=== PATIENT | male | born 1970 | race African-American/Black ===

== ENCOUNTER 2022-06-07 02:44 | Inpatient (IN) | payer BC, MEDICAID ==
[~2022-06-07] VITALS: Ht 185.4 cm; Wt 99.8 kg
[2022-06-07] MEDS ORDERED: HEPARIN SODIUM (PORCINE) 5000 UNITS/ML 1ML VIAL ONE (03:00)
[2022-06-07] MEDS ORDERED: HEPARIN DRIP/D5W 100UNITS/ML 250 ML IV ONE (03:03)
[2022-06-07] MEDS ORDERED: HEPARIN DRIP/D5W 100UNITS/ML 250 ML IV SCH (03:15)
[2022-06-07] MEDS ORDERED: HEPARIN SODIUM (PORCINE) 5000 UNITS/ML 1ML VIAL IV ONE (03:15)
[2022-06-07 03:23] LABS: Hematocrit 37.8 % (41.0-53.0); Hemoglobin 13.4 g/dL (13.5-17.5); Mean Corpuscular Hemoglobin 31.3 pg (28.0-32.0); Mean Corpuscular Hgb Conc. 35.4 g/dL (32.0-36.0); Mean Corpuscular Volume 88.6 fL (80.0-100.0); Red Blood Cells 4.27 10^6/uL (4.5-5.90); Red Cell Distribution Width 13.3 % (11.8-14.3)
[2022-06-07] MEDS ORDERED: ANGIOMAX 250 MG VIAL IV ONE (03:30)
[2022-06-07] MEDS ORDERED: SODIUM CHL 0.9% 50 ML ONE (03:30)
[2022-06-07] MEDS ORDERED: fentaNYL CITRATE 100 MCG/2 ML VL ONE (03:30)
[2022-06-07] MEDS ORDERED: MIDAZOLAM HCL 2MG/2ML 2ml VIAL (1mg/ml) ONE (03:30)
[2022-06-07] MEDS ORDERED: LIDOCAINE 2%HCL (LOCAL ANESTH.) INJ 10ml MDV ONE (03:31)
[2022-06-07] MEDS ORDERED: IOHEXOL 350 MG/ML 100ML IJ ONE (03:31)
[2022-06-07 03:35] LABS: Basophils % (manual) 0 (0.0-2.0); Blast Cells 0; Metamyelocytes % 0; Myelocytes % 0; Promyelocytes % 0; Reactive Lymphocytes 0
[2022-06-07 03:42] LABS: Albumin 3.8 g/dL (3.4-5.0); Calcium 8.6 mg/dL (8.5-10.1); Potassium 3.3 mmol/L (3.5-5.1)
[2022-06-07 03:44] LABS: BUN/Creatinine Ratio 13.9
[2022-06-07 03:47] LABS: Bilirubin, Total 0.5 mg/dL (0.2-1.0); Total Protein 7.1 g/dL (6.4-8.2)
[2022-06-07 04:19] LABS: Band Neutrophils % (manual) 1; Eosinophils % (manual) 1 (0-7); Lymphocytes % (manual) 74 (10.0-50.0); Monocytes % (manual) 6 (0-12)
[2022-06-07] MEDS ORDERED: TICAGRELOR 90 MG TAB ONE (04:26)
[2022-06-07] MEDS ORDERED: DEXTROSE (50%) 50ML SYRG IV PRN (04:30)
[2022-06-07] MEDS ORDERED: NITROGLYCERIN 0.4 MG SL TAB SL PRN (06:45)
[2022-06-07] MEDS ORDERED: MORPHINE SULFATE INJ 2 MG/ml SYRG IV PRN (06:45)
[2022-06-07] MEDS: ACCU-CHEK COMFORT CURVE STRIP VI SCH ×4 (07:00→21:38)
[2022-06-07] MEDS: InsuLIN REG 1unit/0.01ml Soln (100units/ml) SC SCH ×4 (07:00→21:38)
[2022-06-07 07:04] VITALS: BP 143/78
[2022-06-07] MEDS ORDERED: ASPI-543 PO (07:19)
[2022-06-07] MEDS: ASPirin 81 mg TAB PO SCH (10:30)
[2022-06-07] MEDS: DAPAGLIFLOZIN 5 MG TAB PO SCH (10:58)
[2022-06-07] MEDS: ATORVASTATIN 20 MG TAB PO SCH (10:59)
[2022-06-07] MEDS: BENAZEPRIL HCL 10 MG TAB PO SCH ×2 (11:45→21:32)
[2022-06-07] MEDS: TICAGRELOR 90 MG TAB PO SCH ×2 (12:25→21:28)
[2022-06-07 13:30] VITALS: BP 140/77
[2022-06-07 14:44] LABS: INR 0.99 (0.9-1.15); Partial Thromboplastin Time 23.5 sec (24.6-33.4)
[2022-06-07 16:19] VITALS: BP 136/78
[2022-06-07 22:00] VITALS: BP 133/73
[2022-06-08 05:00] VITALS: BP 123/68
[2022-06-08] MEDS: InsuLIN REG 1unit/0.01ml Soln (100units/ml) SC SCH ×4 (07:02→21:32)
[2022-06-08] MEDS: ACCU-CHEK COMFORT CURVE STRIP VI SCH ×4 (07:03→21:32)
[2022-06-08 09:00] VITALS: BP 118/73
[2022-06-08] MEDS: ASPirin 81 mg TAB PO SCH (09:40)
[2022-06-08] MEDS: TICAGRELOR 90 MG TAB PO SCH ×2 (09:40→21:24)
[2022-06-08] MEDS: ATORVASTATIN 20 MG TAB PO SCH (09:41)
[2022-06-08] MEDS: DAPAGLIFLOZIN 5 MG TAB PO SCH (09:41)
[2022-06-08] MEDS: BENAZEPRIL HCL 10 MG TAB PO SCH ×2 (09:42→21:25)
[2022-06-08 13:00] VITALS: BP 118/70
[2022-06-08] MEDS ORDERED: FAMOTIDINE 20 MG TAB PO ONE (16:45)
[2022-06-08 17:00] VITALS: BP 119/69
[2022-06-08] MEDS: SOD CHL 0.9%/ KCL 40MEQ 1,000 ML IV SCH (17:13)
[2022-06-08 18:35] LABS: Cholesterol 192 mg/dL (< 200)
[2022-06-08 18:37] LABS: HDL Cholesterol 45 mg/dL (40-59); LDL Cholesterol 138 mg/dL (< 100); Triglycerides 155 mg/dL (< 150)
[2022-06-08 21:46] VITALS: BP 103/66
[2022-06-09 04:51] VITALS: BP 123/67
[2022-06-09 05:58] LABS: Basophils # (auto) 0 10 ^3/uL (0-0.2); Basophils % (auto) 0.4 % (0.0-2.0); Eosinophils # (auto) 0.1 10 ^3/uL (0-0.8); Eosinophils % (auto) 1.1 % (0.0-7.0); Hematocrit 37.4 % (41.0-53.0); Lymphocytes # (auto) 3.7 10 ^3/uL (0.4-5.4); Lymphocytes % (auto) 50.4 % (10.0-50.0); Mean Corpuscular Hemoglobin 30.6 pg (28.0-32.0); Mean Corpuscular Hgb Conc. 34.8 g/dL (32.0-36.0); Mean Corpuscular Volume 88.1 fL (80.0-100.0); Monocytes # (auto) 0.6 10 ^3/uL (0-1.3); Neutrophils % (auto) 40.1 % (37.0-80.0); Red Blood Cells 4.25 10^6/uL (4.5-5.90); Red Cell Distribution Width 13.1 % (11.8-14.3); White Blood Cell 7.4 10^3/uL (4.4-10.8)
[2022-06-09] MEDS: SOD CHL 0.9%/ KCL 40MEQ 1,000 ML IV SCH (06:05)
[2022-06-09 06:17] LABS: Albumin 3.6 g/dL (3.4-5.0); Calcium 8.9 mg/dL (8.5-10.1); Potassium 4.7 mmol/L (3.5-5.1)
[2022-06-09 06:20] LABS: BUN/Creatinine Ratio 17.5
[2022-06-09 06:22] LABS: Bilirubin, Total 0.4 mg/dL (0.2-1.0); Total Protein 6.7 g/dL (6.4-8.2)
[2022-06-09] MEDS: InsuLIN REG 1unit/0.01ml Soln (100units/ml) SC SCH (06:26)
[2022-06-09] MEDS: ACCU-CHEK COMFORT CURVE STRIP VI SCH (06:28)
[2022-06-09 09:00] VITALS: BP 140/79
[2022-06-09] MEDS: ASPirin 81 mg TAB PO SCH (09:57)
[2022-06-09] MEDS: DAPAGLIFLOZIN 5 MG TAB PO SCH (09:58)
[2022-06-09] MEDS: TICAGRELOR 90 MG TAB PO SCH (09:58)
[2022-06-09] MEDS: ATORVASTATIN 20 MG TAB PO SCH (09:58)
[2022-06-09] MEDS: BENAZEPRIL HCL 10 MG TAB PO SCH (09:58)
[2022-06-09] MEDS ORDERED: FAMOTIDINE 20 MG TAB PO SCH (10:00)
[2022-06-09] MEDS ORDERED: ASPI-325 PO (10:01)
[2022-06-09] MEDS ORDERED: TICA90TA PO (10:01)
[2022-06-09] MEDS ORDERED: BENA10TA15 PO (10:01)
[2022-06-09] MEDS ORDERED: ATOR20TA50 PO (10:01)
[2022-06-09] MEDS ORDERED: NITR0.4S29 SL (10:01)
[2022-06-09] MEDS ORDERED: DAPA1TAB4 PO (10:02)
[2022-06-09 10:11] VITALS: BP 140/79
== END 2022-06-09 10:26 | disposition home or self-care (01) | DRG 247 ==
LOC: EDBD 02:44 → ER 02:44 → TELE 06:44 → TELE-EAST 08:21
PROVIDERS: ADMIT Internal Medicine Cardiovascular Disease; ATTEND Internal Medicine
PROC: 027036Z Dilation of Coronary Artery, One Artery with Three Drug-eluting Intraluminal Devices, Percutaneous Approach (ICD-10-PCS; principal; 2022-06-07)
PROC: B2111ZZ Fluoroscopy of Multiple Coronary Arteries using Low Osmolar Contrast (ICD-10-PCS; 2022-06-07)
DX: I21.19 ST elevation (STEMI) myocardial infarction involving other coronary artery of inferior wall (principal); E78.5 Hyperlipidemia, unspecified; E11.22 Type 2 diabetes mellitus with diabetic chronic kidney disease; I25.10 Atherosclerotic heart disease of native coronary artery without angina pectoris; J44.9 Chronic obstructive pulmonary disease, unspecified; E11.40 Type 2 diabetes mellitus with diabetic neuropathy, unspecified; E87.6 Hypokalemia; R00.1 Bradycardia, unspecified; E11.65 Type 2 diabetes mellitus with hyperglycemia; I12.9 Hypertensive chronic kidney disease with stage 1 through stage 4 chronic kidney disease, or unspecified chronic kidney disease; N18.2 Chronic kidney disease, stage 2 (mild); Z82.49 Family history of ischemic heart disease and other diseases of the circulatory system; Z86.73 Personal history of transient ischemic attack (TIA), and cerebral infarction without residual deficits; Z95.5 Presence of coronary angioplasty implant and graft; Z20.822 Contact with and (suspected) exposure to COVID-19
CPT/HCPCS: 36415; 71045; 80053; 80061; 82962; 84484; 85007; 85025; 85027; 85610; 85730; 93005; 96365; 99152; 99153; 99291; C1874; C1887; G0378; J1815; J2001; J2250

== ENCOUNTER 2022-08-28 20:13 | Inpatient (IN) | payer BC, MEDICAID ==
[~2022-08-28] VITALS: Ht 185.4 cm; Wt 97.1 kg
[~2022-08-28 20:13] MED LIST: ASPI-325 PO; ASPI-543 PO; ATOR20TA50 PO; BENA10TA15 PO; DAPA1TAB4 PO; NITR0.4S29 SL; TICA90TA PO
[2022-08-28 22:58] LABS: Hematocrit 36.1 % (41.0-53.0); Hemoglobin 12.6 g/dL (13.5-17.5); Mean Corpuscular Hemoglobin 30.5 pg (28.0-32.0); Mean Corpuscular Hgb Conc. 34.8 g/dL (32.0-36.0); Mean Corpuscular Volume 87.6 fL (80.0-100.0); Red Blood Cells 4.12 10^6/uL (4.5-5.90); Red Cell Distribution Width 13.1 % (11.8-14.3)
[2022-08-28 23:00] LABS: Basophils % (manual) 0 (0.0-2.0); Blast Cells 0; Eosinophils % (manual) 0 (0-7); Metamyelocytes % 0; Myelocytes % 0; Promyelocytes % 0
[2022-08-28 23:18] LABS: Albumin 3.9 g/dL (3.4-5.0); Calcium 8.7 mg/dL (8.5-10.1); Magnesium 2.1 mg/dL (1.6-2.6); Potassium 4.4 mmol/L (3.5-5.1)
[2022-08-28 23:19] LABS: BUN/Creatinine Ratio 13.9
[2022-08-28 23:22] LABS: Bilirubin, Total 0.2 mg/dL (0.2-1.0)
[2022-08-29 00:36] LABS: Band Neutrophils % (manual) 1; Lymphocytes % (manual) 55 (10.0-50.0); Monocytes % (manual) 8 (0-12); Reactive Lymphocytes 1
[2022-08-29 05:17] LABS: Urine WBC None Seen /hpf (0 - 3)
[2022-08-29 05:25] LABS: Urine Bacteria NONE SEEN /hpf (None Seen); Urine Blood Negative /uL (Negative); Urine Specific Gravity 1.027 (1.001-1.035)
[2022-08-29] MEDS ORDERED: TEMAZEPAM 15 MG CAP PO PRN (05:45)
[2022-08-29] MEDS ORDERED: hydrALAZINE HCL 20 MG/ML VL IV PRN (05:45)
[2022-08-29] MEDS ORDERED: DEXTROSE (50%) 50ML SYRG IV PRN (05:45)
[2022-08-29] MEDS ORDERED: ONDANSETRON HCL 4 MG/2 ML VIAL IV PRN (05:45)
[2022-08-29] MEDS ORDERED: MORPHINE SULFATE INJ 2 MG/ml SYRG IV PRN (05:45)
[2022-08-29] MEDS ORDERED: NITROGLYCERIN 0.4 MG SL TAB SL PRN (05:45)
[2022-08-29] MEDS: InsuLIN REG 1unit/0.01ml Soln (100units/ml) SC SCH ×4 (08:19→22:36)
[2022-08-29] MEDS: ACCU-CHEK COMFORT CURVE STRIP VI SCH ×4 (08:25→22:30)
[2022-08-29] MEDS ORDERED: TICAGRELOR 90 MG TAB PO SCH ×2 (10:00→11:45)
[2022-08-29] MEDS: ASPirin 81 mg TAB PO SCH ×2 (10:08→10:21)
[2022-08-29] MEDS: TICAGRELOR 90 MG TAB PO SCH ×2 (10:08→10:22)
[2022-08-29] MEDS: ENOXAPARIN SOD 40 MG/0.4 ML SYRINGE SC SCH (10:09)
[2022-08-29] MEDS: PANTOPRAZOLE 40 MG TAB PO SCH ×2 (10:09→10:20)
[2022-08-29] MEDS: BENAZEPRIL HCL 10 MG TAB PO SCH ×2 (10:12→10:21)
[2022-08-29] MEDS ORDERED: NITROGLYCERIN 0.4MG/HR TOPICAL PATCH TD ONE (11:45)
[2022-08-29] MEDS: SODIUM CHLORIDE 0.9% 1,000 ML IV SCH (12:03)
[2022-08-29 22:25] VITALS: BP 125/60
[2022-08-29] MEDS: ATORVASTATIN 20 MG TAB PO SCH (22:32)
[2022-08-29] MEDS: ACETAMINOPHEN 325 MG TAB PO PRN (22:44)
[2022-08-30] MEDS: SODIUM CHLORIDE 0.9% 1,000 ML IV SCH (04:25)
[2022-08-30 04:43] VITALS: BP 134/73
[2022-08-30 05:22] LABS: Basophils # (auto) 0 10 ^3/uL (0-0.2); Basophils % (auto) 0.5 % (0.0-2.0); Eosinophils # (auto) 0.1 10 ^3/uL (0-0.8); Eosinophils % (auto) 1.5 % (0.0-7.0); Hematocrit 34.2 % (41.0-53.0); Hemoglobin 12.1 g/dL (13.5-17.5); Lymphocytes # (auto) 2.6 10 ^3/uL (0.4-5.4); Lymphocytes % (auto) 42.2 % (10.0-50.0); Mean Corpuscular Hemoglobin 30.9 pg (28.0-32.0); Mean Corpuscular Hgb Conc. 35.2 g/dL (32.0-36.0); Mean Corpuscular Volume 87.6 fL (80.0-100.0); Monocytes # (auto) 0.5 10 ^3/uL (0-1.3); Monocytes % (auto) 7.8 % (0.0-12.0); Nucleated Red Blood Cells % 0.1 %; Red Blood Cells 3.91 10^6/uL (4.5-5.90); White Blood Cell 6.2 10^3/uL (4.4-10.8)
[2022-08-30 05:40] LABS: Albumin 3.2 g/dL (3.4-5.0); Calcium 8.2 mg/dL (8.5-10.1)
[2022-08-30 05:45] LABS: BUN/Creatinine Ratio 11.8; Bilirubin, Total 0.4 mg/dL (0.2-1.0); Total Protein 5.9 g/dL (6.4-8.2)
[2022-08-30] MEDS: ACCU-CHEK COMFORT CURVE STRIP VI SCH ×4 (06:32→22:02)
[2022-08-30] MEDS: InsuLIN REG 1unit/0.01ml Soln (100units/ml) SC SCH ×4 (06:38→22:02)
[2022-08-30 08:54] VITALS: BP 135/84
[2022-08-30] MEDS: ENOXAPARIN SOD 40 MG/0.4 ML SYRINGE SC SCH (09:07)
[2022-08-30] MEDS: TICAGRELOR 90 MG TAB PO SCH ×2 (09:07→22:00)
[2022-08-30] MEDS: BENAZEPRIL HCL 10 MG TAB PO SCH ×2 (09:08→22:01)
[2022-08-30] MEDS: ASPirin 81 mg TAB PO SCH (09:08)
[2022-08-30] MEDS ORDERED: DEXTROSE (50%) 50ML SYRG IV PRN (11:30)
[2022-08-30] MEDS: NITROGLYCERIN 0.4MG/HR TOPICAL PATCH TD SCH (11:30)
[2022-08-30] MEDS: ACETAMINOPHEN 325 MG TAB PO PRN (12:14)
[2022-08-30 13:16] VITALS: BP 124/76
[2022-08-30 17:47] VITALS: BP 149/66
[2022-08-30] MEDS: ATORVASTATIN 20 MG TAB PO SCH (22:01)
[2022-08-31] VITALS (7 sets, daily range): BP systolic 121–149; BP diastolic 70–87
[2022-08-31 06:02] LABS: Basophils # (auto) 0 10 ^3/uL (0-0.2); Basophils % (auto) 0.6 % (0.0-2.0); Eosinophils # (auto) 0.1 10 ^3/uL (0-0.8); Eosinophils % (auto) 1.1 % (0.0-7.0); Hematocrit 34.9 % (41.0-53.0); Hemoglobin 12.3 g/dL (13.5-17.5); Lymphocytes # (auto) 2.7 10 ^3/uL (0.4-5.4); Lymphocytes % (auto) 41.3 % (10.0-50.0); Mean Corpuscular Hemoglobin 30.8 pg (28.0-32.0); Mean Corpuscular Hgb Conc. 35.2 g/dL (32.0-36.0); Mean Corpuscular Volume 87.5 fL (80.0-100.0); Monocytes # (auto) 0.6 10 ^3/uL (0-1.3); Monocytes % (auto) 8.6 % (0.0-12.0); Neutrophils # (auto) 3.2 10 ^3/uL (1.6-8.6); Neutrophils % (auto) 48.4 % (37.0-80.0); Nucleated Red Blood Cells % 0.1 %; Red Blood Cells 3.99 10^6/uL (4.5-5.90); Red Cell Distribution Width 12.9 % (11.8-14.3); White Blood Cell 6.6 10^3/uL (4.4-10.8)
[2022-08-31 06:14] LABS: INR 1.03 (0.9-1.15); Partial Thromboplastin Time 26.3 sec (24.6-33.4)
[2022-08-31 06:19] LABS: Calcium 8.4 mg/dL (8.5-10.1); Potassium 3.8 mmol/L (3.5-5.1)
[2022-08-31 06:21] LABS: BUN/Creatinine Ratio 16.8
[2022-08-31] MEDS: ACCU-CHEK COMFORT CURVE STRIP VI SCH ×4 (06:34→22:23)
[2022-08-31] MEDS: InsuLIN REG 1unit/0.01ml Soln (100units/ml) SC SCH ×4 (06:40→22:35)
[2022-08-31] MEDS: ENOXAPARIN SOD 40 MG/0.4 ML SYRINGE SC SCH (10:00)
[2022-08-31] MEDS: TICAGRELOR 90 MG TAB PO SCH ×2 (10:05→22:20)
[2022-08-31] MEDS: ASPirin 81 mg TAB PO SCH (10:05)
[2022-08-31] MEDS: PANTOPRAZOLE 40 MG TAB PO SCH (10:07)
[2022-08-31] MEDS: BENAZEPRIL HCL 10 MG TAB PO SCH ×2 (10:10→22:22)
[2022-08-31] MEDS: NITROGLYCERIN 0.4MG/HR TOPICAL PATCH TD SCH (10:13)
[2022-08-31] MEDS ORDERED: IOHEXOL 350 MG/ML 100ML IJ ONE (14:04)
[2022-08-31] MEDS ORDERED: LIDOCAINE 2%HCL (LOCAL ANESTH.) INJ 20ML MDV ONE (14:04)
[2022-08-31] MEDS ORDERED: ANGIOMAX 250 MG VIAL IV ONE (14:05)
[2022-08-31] MEDS ORDERED: SODIUM CHL 0.9% 50 ML ONE (14:06)
[2022-08-31] MEDS ORDERED: MIDAZOLAM HCL 2MG/2ML 2ml VIAL (1mg/ml) ONE (14:06)
[2022-08-31] MEDS ORDERED: fentaNYL CITRATE 100 MCG/2 ML VL ONE (14:07)
[2022-08-31] MEDS: ACETAMINOPHEN 325 MG TAB PO PRN ×2 (20:04→22:36)
[2022-08-31] MEDS: SODIUM CHLOR 0.9% PF (SALINE LOCK) 10ML VIAL/SYR IV SCH (22:20)
[2022-08-31] MEDS: ATORVASTATIN 20 MG TAB PO SCH (22:20)
[2022-09-01 05:00] VITALS: BP 131/80
[2022-09-01 05:36] LABS: Albumin 3.3 g/dL (3.4-5.0); Calcium 8.3 mg/dL (8.5-10.1); Potassium 3.7 mmol/L (3.5-5.1)
[2022-09-01] MEDS: SODIUM CHLOR 0.9% PF (SALINE LOCK) 10ML VIAL/SYR IV SCH ×3 (05:38→21:47)
[2022-09-01 05:40] LABS: BUN/Creatinine Ratio 13.6; Bilirubin, Total 0.4 mg/dL (0.2-1.0); Total Protein 6.3 g/dL (6.4-8.2)
[2022-09-01] MEDS: ACCU-CHEK COMFORT CURVE STRIP VI SCH ×4 (06:12→21:53)
[2022-09-01] MEDS: InsuLIN REG 1unit/0.01ml Soln (100units/ml) SC SCH ×4 (06:41→21:53)
[2022-09-01 07:30] VITALS: BP 128/70
[2022-09-01 08:00] VITALS: BP 131/78
[2022-09-01] MEDS: ENOXAPARIN SOD 40 MG/0.4 ML SYRINGE SC SCH (08:38)
[2022-09-01] MEDS: NITROGLYCERIN 0.4MG/HR TOPICAL PATCH TD SCH (08:38)
[2022-09-01] MEDS: BENAZEPRIL HCL 10 MG TAB PO SCH ×2 (08:39→21:47)
[2022-09-01] MEDS: PANTOPRAZOLE 40 MG TAB PO SCH (08:39)
[2022-09-01] MEDS: ASPirin 81 mg TAB PO SCH (08:39)
[2022-09-01] MEDS: TICAGRELOR 90 MG TAB PO SCH ×2 (08:42→21:47)
[2022-09-01 12:00] VITALS: BP 132/74
[2022-09-01 16:00] VITALS: BP 120/73
[2022-09-01] MEDS: ATORVASTATIN 20 MG TAB PO SCH (21:47)
[2022-09-01 22:00] VITALS: BP 130/80
[2022-09-02 05:00] VITALS: BP 130/76
[2022-09-02] MEDS: ACCU-CHEK COMFORT CURVE STRIP VI SCH ×2 (06:28→11:30)
[2022-09-02] MEDS: SODIUM CHLOR 0.9% PF (SALINE LOCK) 10ML VIAL/SYR IV SCH (06:28)
[2022-09-02] MEDS: InsuLIN REG 1unit/0.01ml Soln (100units/ml) SC SCH ×2 (06:31→11:30)
[2022-09-02 09:00] VITALS: BP 110/62
[2022-09-02] MEDS: ASPirin 81 mg TAB PO SCH (09:27)
[2022-09-02] MEDS: PANTOPRAZOLE 40 MG TAB PO SCH (09:27)
[2022-09-02] MEDS: BENAZEPRIL HCL 10 MG TAB PO SCH (09:28)
[2022-09-02] MEDS: TICAGRELOR 90 MG TAB PO SCH (09:28)
[2022-09-02] MEDS: NITROGLYCERIN 0.4MG/HR TOPICAL PATCH TD SCH (09:30)
[2022-09-02] MEDS: ENOXAPARIN SOD 40 MG/0.4 ML SYRINGE SC SCH (09:31)
[2022-09-02 12:14] VITALS: BP 132/82
[2022-09-02 13:00] VITALS: BP 135/81
== END 2022-09-02 13:35 | disposition home or self-care (01) | DRG 247 ==
LOC: ER 20:13 → TELE 08-29 05:47 → TELE-WESTW 08-29 21:35
PROVIDERS: ADMIT Nurse Practitioner; ATTEND Nurse Practitioner Acute Care
PROC: 027034Z Dilation of Coronary Artery, One Artery with Drug-eluting Intraluminal Device, Percutaneous Approach (ICD-10-PCS; principal; 2022-08-31)
PROC: B211YZZ Fluoroscopy of Multiple Coronary Arteries using Other Contrast (ICD-10-PCS; 2022-08-31)
DX: I25.110 Atherosclerotic heart disease of native coronary artery with unstable angina pectoris (principal); N18.31 Chronic kidney disease, stage 3a; R00.1 Bradycardia, unspecified; E11.22 Type 2 diabetes mellitus with diabetic chronic kidney disease; E78.5 Hyperlipidemia, unspecified; E11.21 Type 2 diabetes mellitus with diabetic nephropathy; J44.9 Chronic obstructive pulmonary disease, unspecified; I12.9 Hypertensive chronic kidney disease with stage 1 through stage 4 chronic kidney disease, or unspecified chronic kidney disease; Z20.822 Contact with and (suspected) exposure to COVID-19; Z83.3 Family history of diabetes mellitus; Z86.73 Personal history of transient ischemic attack (TIA), and cerebral infarction without residual deficits; Z91.14 Patient's other noncompliance with medication regimen; Z98.61 Coronary angioplasty status; I25.2 Old myocardial infarction; Z79.82 Long term (current) use of aspirin
CPT/HCPCS: 36415; 71045; 80048; 80053; 81001; 82962; 83036; 83735; 84484; 85007; 85025; 85027; 85610; 85730; 86850; 86900; 86901; 87426; 93005; 93306; G0378; J1815; J2250

== ENCOUNTER 2022-09-15 09:44 | Emergency (ER) | payer BC, MEDICAID ==
[~2022-09-15] VITALS: Ht 185.4 cm; Wt 90.9 kg
[2022-09-15 10:12] VITALS: BP 168/64
[2022-09-15] MEDS ORDERED: PROM1SOL4 PO (10:47)
[2022-09-15] MEDS ORDERED: AZIT500T66 PO (10:47)
== END 2022-09-15 10:54 | disposition home or self-care (01) ==
LOC: ER 09:44
DX: J20.9 Acute bronchitis, unspecified (principal); I12.9 Hypertensive chronic kidney disease with stage 1 through stage 4 chronic kidney disease, or unspecified chronic kidney disease; N18.9 Chronic kidney disease, unspecified; I25.2 Old myocardial infarction; Z86.73 Personal history of transient ischemic attack (TIA), and cerebral infarction without residual deficits; Z98.61 Coronary angioplasty status
CPT/HCPCS: 71046; 93005

== ENCOUNTER 2022-11-11 11:29 | Emergency (ER) | payer BC, MEDICAID ==
[~2022-11-11] VITALS: Ht 188 cm; Wt 92.6 kg
[~2022-11-11 11:29] MED LIST changes: +AZIT500T66 PO; +PROM1SOL4 PO
[2022-11-11] MEDS ORDERED: IOHEXOL 350 MG/ML 100ML IJ ONE ×2 (12:06→12:24)
[2022-11-11 12:11] LABS: Hematocrit 37.8 % (41.0-53.0); Hemoglobin 13.1 g/dL (13.5-17.5); Mean Corpuscular Hgb Conc. 34.5 g/dL (32.0-36.0); Mean Corpuscular Volume 89.7 fL (80.0-100.0); Red Blood Cells 4.22 10^6/uL (4.5-5.90); Red Cell Distribution Width 13.3 % (11.8-14.3); White Blood Cell 5.8 10^3/uL (4.4-10.8)
[2022-11-11 12:15] LABS: Band Neutrophils % (manual) 0; Basophils % (manual) 0 (0.0-2.0); Blast Cells 0; Metamyelocytes % 0; Myelocytes % 0; Promyelocytes % 0; Reactive Lymphocytes 0
[2022-11-11 12:24] LABS: Partial Thromboplastin Time 24.5 sec (24.6-33.4)
[2022-11-11 12:29] LABS: Albumin 4.1 g/dL (3.4-5.0); Calcium 9.1 mg/dL (8.5-10.1); Magnesium 2.1 mg/dL (1.6-2.6); Potassium 4.1 mmol/L (3.5-5.1)
[2022-11-11 12:33] LABS: BUN/Creatinine Ratio 17.3; Bilirubin, Total 0.4 mg/dL (0.2-1.0); Total Protein 7.1 g/dL (6.4-8.2)
[2022-11-11 12:44] LABS: Eosinophils % (manual) 1 (0-7); Lymphocytes % (manual) 59 (10.0-50.0); Monocytes % (manual) 4 (0-12)
[2022-11-11 16:01] VITALS: BP 157/88
== END 2022-11-11 15:59 | disposition home or self-care (01) ==
LOC: ER 11:33
DX: G45.9 Transient cerebral ischemic attack, unspecified (principal); R07.89 Other chest pain; E11.65 Type 2 diabetes mellitus with hyperglycemia; I25.2 Old myocardial infarction; I25.10 Atherosclerotic heart disease of native coronary artery without angina pectoris; I12.9 Hypertensive chronic kidney disease with stage 1 through stage 4 chronic kidney disease, or unspecified chronic kidney disease; E11.22 Type 2 diabetes mellitus with diabetic chronic kidney disease; N18.9 Chronic kidney disease, unspecified; E78.5 Hyperlipidemia, unspecified; Z86.73 Personal history of transient ischemic attack (TIA), and cerebral infarction without residual deficits
CPT/HCPCS: 36415; 70450; 71045; 80053; 83735; 83880; 84484; 85007; 85027; 85610; 85730; 93005; 99285; Q9967

== ENCOUNTER 2022-12-14 09:29 | Emergency (ER) | payer BC, MEDICAID ==
[~2022-12-14] VITALS: Ht 185.4 cm; Wt 90.9 kg
[2022-12-14 10:59] LABS: Basophils # (auto) 0 10 ^3/uL (0-0.2); Basophils % (auto) 0.6 % (0.0-2.0); Eosinophils # (auto) 0 10 ^3/uL (0-0.8); Eosinophils % (auto) 0.1 % (0.0-7.0); Hematocrit 39.8 % (41.0-53.0); Hemoglobin 13.5 g/dL (13.5-17.5); Lymphocytes # (auto) 1.2 10 ^3/uL (0.4-5.4); Lymphocytes % (auto) 17.6 % (10.0-50.0); Mean Corpuscular Hemoglobin 30.4 pg (28.0-32.0); Mean Corpuscular Volume 89.4 fL (80.0-100.0); Monocytes # (auto) 0.2 10 ^3/uL (0-1.3); Monocytes % (auto) 3.3 % (0.0-12.0); Neutrophils # (auto) 5.4 10 ^3/uL (1.6-8.6); Neutrophils % (auto) 78.4 % (37.0-80.0); Nucleated Red Blood Cells % 0.1 %; Red Blood Cells 4.46 10^6/uL (4.5-5.90); Red Cell Distribution Width 13.2 % (11.8-14.3); White Blood Cell 6.8 10^3/uL (4.4-10.8)
[2022-12-14 11:11] LABS: Albumin 4.1 g/dL (3.4-5.0); BUN/Creatinine Ratio 14.2; Calcium 9.8 mg/dL (8.5-10.1); Potassium 4.3 mmol/L (3.5-5.1)
[2022-12-14 11:15] LABS: Bilirubin, Total 0.4 mg/dL (0.2-1.0); Total Protein 7.9 g/dL (6.4-8.2)
[2022-12-14] MEDS ORDERED: MAALOX PLUS or MAALOX 30 ML PO ONE (13:00)
[2022-12-14] MEDS ORDERED: FAMOTIDINE 20 MG TAB PO ONE (13:00)
[2022-12-14] MEDS ORDERED: LIDOCAINE VISCOUS 2% 15ML UD PO ONE (13:00)
[2022-12-14] MEDS ORDERED: ONDANSETRON ODT 4 MG TAB PO ONE (13:00)
[2022-12-14] MEDS ORDERED: ONDA-144 PO (15:24)
[2022-12-14 16:41] VITALS: BP 161/84
== END 2022-12-14 16:47 | disposition home or self-care (01) ==
LOC: ER 09:29
DX: R11.2 Nausea with vomiting, unspecified (principal); E11.22 Type 2 diabetes mellitus with diabetic chronic kidney disease; I12.9 Hypertensive chronic kidney disease with stage 1 through stage 4 chronic kidney disease, or unspecified chronic kidney disease; N18.9 Chronic kidney disease, unspecified; E78.5 Hyperlipidemia, unspecified; Z86.73 Personal history of transient ischemic attack (TIA), and cerebral infarction without residual deficits
CPT/HCPCS: 36415; 71045; 80053; 83690; 85025; 93005; 99285; Q0162

== ENCOUNTER 2023-10-06 11:15 | Emergency (ER) | payer MEDICAID ==
[~2023-10-06] VITALS: Ht 185.4 cm; Wt 90.8 kg
[~2023-10-06 11:15] MED LIST changes: +BENA-19 PO; -BENA10TA15 PO; +ONDA-144 PO
[2023-10-06 11:25] VITALS: BP 152/66; RESP 18; O2SAT 99
[2023-10-06 11:42] VITALS: PULSE 53
== END 2023-10-06 15:32 | disposition left against medical advice (07) ==
LOC: ER 11:15
DX: M79.10 Myalgia, unspecified site (principal); R07.89 Other chest pain; Z53.21 Procedure and treatment not carried out due to patient leaving prior to being seen by health care provider
CPT/HCPCS: 82962; 93005

== ENCOUNTER 2024-07-12 18:24 | Emergency (ER) | payer BC, MEDICAID ==
[~2024-07-12] VITALS: Ht 185.4 cm; Wt 92.0 kg
[~2024-07-12 18:24] MED LIST changes: -BENA-19 PO; +BENA10TA90 PO
[2024-07-12 18:25] VITALS: BP 160/76; RESP 16; O2SAT 99
[2024-07-12 18:53] LABS: Basophils # (auto) 0 10 ^3/uL (0-0.2); Basophils % (auto) 0.7 % (0.0-2.0); Eosinophils # (auto) 0.1 10 ^3/uL (0-0.8); Eosinophils % (auto) 1.2 % (0.0-7.0); Hematocrit 36.4 % (41.0-53.0); Hemoglobin 12.6 g/dL (13.5-17.5); Lymphocytes # (auto) 3.3 10 ^3/uL (0.4-5.4); Lymphocytes % (auto) 53.2 % (10.0-50.0); Mean Corpuscular Hemoglobin 31.5 pg (28.0-32.0); Mean Corpuscular Hgb Conc. 34.7 g/dL (32.0-36.0); Mean Corpuscular Volume 90.7 fL (80.0-100.0); Monocytes # (auto) 0.4 10 ^3/uL (0-1.3); Monocytes % (auto) 6.1 % (0.0-12.0); Neutrophils # (auto) 2.4 10 ^3/uL (1.6-8.6); Neutrophils % (auto) 38.8 % (37.0-80.0); Platelet Count (auto) 220 10^3/uL (140-450); Red Blood Cells 4.02 10^6/uL (4.5-5.90); Red Cell Distribution Width 13.8 % (11.8-14.3); White Blood Cell 6.3 10^3/uL (4.4-10.8)
[2024-07-12 19:19] LABS: Alanine Aminotransferase 23 U/L (7-40); Albumin 4.6 g/dL (3.2-4.8); Alkaline Phosphatase 63 U/L (46-116); Anion Gap 6 (5-15); Aspartate Aminotransferase 16 U/L (13-40); BUN/Creatinine Ratio 7.6 (10.0-20.0); Blood Urea Nitrogen 11 mg/dL (9-23); Calcium 9.6 mg/dL (8.7-10.4); Carbon Dioxide 27 mmol/L (20-30); Chloride 103 mmol/L (98-107); Glucose 356 mg/dL (74-106); Potassium 4.1 mmol/L (3.5-5.1); Sodium 136 mmol/L (136-145)
[2024-07-12 19:20] LABS: Bilirubin, Total 0.3 mg/dL (0.2-1.0); Total Protein 7.5 g/dL (5.7-8.2)
[2024-07-12 19:31] VITALS: PULSE 55
[2024-07-12 20:04] LABS: INR 1.05 (0.9-1.15); Partial Thromboplastin Time 26.5 SEC (24.5-34.5); Prothrombin Time 11.1 sec (9.3-11.8)
[2024-07-13] MEDS: ASPirin 81 mg TAB PO ONE (01:38)
[2024-07-13] MEDS: MORPHINE SULFATE 4 MG/ML SYR/VIAL IV ONE (01:38)
[2024-07-13] MEDS: NITROGLYCERIN 0.4 MG SL TAB SL ONE (01:38)
== END 2024-07-13 01:28 | disposition home or self-care (01) ==
LOC: ER 18:24
DX: R07.89 Other chest pain (principal); I12.9 Hypertensive chronic kidney disease with stage 1 through stage 4 chronic kidney disease, or unspecified chronic kidney disease; E11.22 Type 2 diabetes mellitus with diabetic chronic kidney disease; N18.9 Chronic kidney disease, unspecified; I25.2 Old myocardial infarction; I25.10 Atherosclerotic heart disease of native coronary artery without angina pectoris; E78.5 Hyperlipidemia, unspecified; Z98.890 Other specified postprocedural states; Z79.899 Other long term (current) drug therapy
CPT/HCPCS: 36415; 71045; 80053; 84484; 85025; 85610; 85730; 93005

== ENCOUNTER 2025-09-14 15:58 | Emergency (ER) | payer BC, OTHER ==
[~2025-09-14] VITALS: Ht 182.9 cm; Wt 89.0 kg
--- NOTE | 2025-09-14 16:46 | ED.PDOC ---
Eye-HPI HPI Comments 55 year old male with PMHx CAD, CKF, CVA, DM, HLD, HTN, [place] presents to the ED with a chief complaint of RT ear pain onset today (09/14/25). Patient states he woke up this morning experiencing RT ear pain, described as an aching pain, began experiencing headache. Has not taken any medication. No other symptoms or modifying factors present at this time. Denies blunt trauma (hand blow to the ear, fall, direct hit) Denies penetrating trauma (Q-tip use, match-stick, gunshot wound, welding spark) Denies ear trauma Denies barotrauma Denies blast injury Denies air travel Denies scuba diving Denies hearing loss Denies persistent ringing in the ear Denies fever chills night sweats unintentional weight loss Denies nausea vomiting or recent vision changes Chief Complaint: Earache Time Seen by MD: 16:30 Primary Care Provider: NONE Reviewed Notes: Nurses Notes, Medications, Allergies Allergies: Coded Allergies: NO KNOWN ALLERGIES (Unverified , 06/07/22) Home Meds Active Scripts Ondansetron (Zofran) 4 Mg Tab, 4 MG PO Q8HPRN PRN for 3 Days, #9 TAB Prov:TRUDY VEGA MD 12/14/22 Promethazine-Dm (Promethazine Dm 6.25-15 mg/5Ml) 1 [place], 5 ML PO TID, #160 ML Prov:MELISSA ECHEVERRIA 09/15/22 Azithromycin (Azithromycin) 500 Mg Tab, 1 TAB PO DAILY, #5 TAB Prov:MELISSA ECHEVERRIA 09/15/22 Dapagliflozin Propanediol (Farxiga) 10 Mg Tab, 10 MG PO DAILY for 30 Days, #30 TAB Prov:OSWALD SANTIAGO MD 06/09/22 Ticagrelor Base (BRILINTA) 90 Mg Tab, 90 MG PO BID for 30 Days, #60 TAB Prov:OSWALD SANTIAGO MD 06/09/22 Nitroglycerin (NTROSTAT SUBLINGUAL) 0.4 Mg Sl, 0.4 MG SL Q5MINP PRN for 30 Days, #30 TAB Prov:OSWALD SANTIAGO MD 06/09/22 Benazepril Hcl (Benazepril Hcl) 10 Mg Tab, 10 MG PO BID for 30 Days, #60 TAB Prov:OSWALD SANTIAGO MD 06/09/22 Atorvastatin Calcium (ATORVASTATIN CALCIUM) 20 Mg Tab, 20 MG PO DAILY for 30 Days, #30 TAB Prov:OSWALD SANTIAGO MD 06/09/22 Aspirin (Aspirin Low Dose) 81 Mg Tab, 81 MG PO DAILY for 30 Days, #30 TAB 1 Refill Prov:OSWALD SANTIAGO MD 06/09/22 Reported Medications Aspirin (Aspir-Low) 81 Mg Tab, 81 MG PO DAILY for 30 Days, MG 06/07/22 Information Source: Patient Mode of Arrival: Ambulatory Timing: Hours Duration: Since onset Prehospital treatment: None Quality: Pain Onset: Spontaneous Throat Exposed to: None History of: None Last Tetanus: UTD Associated signs and symptoms: Ear Pain Past Medical History PAST MEDICAL HISTORY: CAD, CKF, CVA, DM, High Lipids, HTN, [place] Surgical History: PTCA Family History Family History: Reviewed,noncontributory to illness Social History Smoker: Non-Smoker Alcohol: Denies ETOH Use Drugs: Denies Drug Use Lives In: Home All Other Systems: Reviewed and Negative (as per HPI) Physical Exam General Appearance: No Apparent Distress, Normal HEENT: Pharynx Normal, Other (Bilateral cerumen impaction) Neck: Full Range of Motion, Non-Tender, Normal, Normal Inspection Respiratory: Chest Non-Tender, Lungs Clear, No Accessory Muscle Use, No Respiratory Distress, Normal Breath Sounds Cardiovascular: No Edema, No JVD, No Murmur, No Gallop, Normal Peripheral Pulses, Regular Rate/Rhythm Breast Exam: Deferred Gastrointestinal: No Organomegaly, Non Tender, No Pulsatile Mass, Normal Bowel Sounds, Soft Genitalia: Deferred Pelvic: Deferred Rectal: Deferred Extremities: No calf tenderness, Normal capillary refill, Normal inspection, Normal range of motion, Non-tender, No pedal edema Musculoskeletal : Apperance: Normal Neurologic: Alert, shrub grower II-XII nml as Tested, No Motor Deficits, Normal Affect, Normal Mood, No Sensory Deficits Cerebellar Function: Normal Reflexes: Normal Skin: Dry, Normal Color, Warm Lymphatic: No Adenopathy Was a procedure done? Was a procedure done?: No EENT DIFF Eye: Other X-Ray, Labs, Meds, VS Vital Signs Date Time Temp Pulse Resp B/P (MAP) Pulse Ox O2 Delivery O2 Flow Rate FiO2 09/14/25 17:25 98.1 73 16 138/75 (96) 99 98.1 09/14/25 17:23 73 16 99 Room Air 09/14/25 16:05 97.7 68 18 146/80 100 97.7 X-Ray, Labs, Meds, VS Comment 55 year old male with PMHx CAD, CKF, CVA, DM, HLD, HTN, [place] presents to the ED with a chief complaint of RT ear pain onset today (09/14/25). Patient arrives alert and oriented, ABC's intact, afebrile, vital signs stable, saturating well in room air Additional MDM Review of External, Non-ED records: External records reviewed. Discussion with independent historian (EMS, family) history obtained from the patient/parents (if applicable) at bedside Chronic conditions affecting care: CAD, CKF, CVA, DM, HLD, HTN, [place] Social determinants of health affecting care: None Consideration of admission (observation or admission): I considered escalation of care to admission for this patient, however given the reassuring workup, the patient is safe for outpatient management. On reevaluation, patient had symptomatic improvement. Patient is stable for discharge at this time. External notes reviewed. Test results and diagnostic imaging interpreted. All diagnostic findings, discharge care, education and instructions provided Follow-up with PCP in 2 to 3 days Patient verbalized understanding and agreed to treatment plan Vital signs stable, afebrile, no acute distress noted Patient ambulatory with strong steady gait Advised to return precautions for any new or worsening symptoms, return to ER immediately for re-evaluation Patient is aware that the purpose of this visit was for an acute medical emergency requiring emergent stabilization. Chronic conditions, including malignancies have not been ruled out. Patient is instructed to follow up with P CP as directed and discharge instructions for continued care and workup. If unable to arrange follow-up, patient is to return to the emergency department for reassessment. Patient (parent or legal guardian if applicable) was given verbal and written discharge instructions and acknowledges understanding. Time of 1ST Reevaluation: 17:00 Reevaluation 1ST: Improved Patient Education/Counseling: Diagnosis, Treatment Family Education/Counseling: No Family Present SEPSIS Sepsis Screen Date sepsis recognized/suspect: Sep 14, 2025 Time Sepsis recognized/suspect: 1605 Recent Procedure: No On Antibiotic Therapy: No Respiratory Rate >20: No Heart Rate >90: No Temp<36 C (96.8 F) or >38.3 C: No SBP <90 or MAP <65 mmHG: No New Acute Mental Status Change: No Is the patient on CPAP, BIPAP,: No Vital Signs Date Time Temp Pulse Resp B/P (MAP) Pulse Ox O2 Delivery O2 Flow Rate FiO2 09/14/25 17:25 98.1 73 16 138/75 (96) 99 98.1 09/14/25 17:23 73 16 99 Room Air 09/14/25 16:05 97.7 68 18 146/80 100 97.7 Departure 1 Departure Time of Disposition: 16:46 Impression: Primary Impression: Bilateral impacted cerumen Disposition: HOME / SELF CARE / HOMELESS Condition: Stable Discharged With: Self Critical Care Note Critical Care Time?: No Stability Stability form required: No Heart Score Heart Score: Heart Score Response (Comments) Value History N/A 0 EKG N/A 0 Age N/A 0 Risk Factors N/A 0 Troponin N/A 0 Total 0 I personally scribed for WILLIAM PAPPAS NP ([email or web address]) on 09/14/25 at 16:46. Electronically submitted by Geena Saleem ([email or web address]). I personally scribed for WILLIAM PAPPAS NP ([email or web address]) on 09/14/25 at 16:46. Electronically submitted by Geena Saleem ([email or web address]). WILLIAM PAPPAS NP Sep 14, 2025 16:46
[2025-09-14 17:25] VITALS: BP 138/75; PULSE 73; RESP 16; TEMP 98.1; O2SAT 99
== END 2025-09-14 17:33 | disposition home or self-care (01) ==
LOC: ER 15:58
DX: H61.23 Impacted cerumen, bilateral (principal); I12.9 Hypertensive chronic kidney disease with stage 1 through stage 4 chronic kidney disease, or unspecified chronic kidney disease; E11.22 Type 2 diabetes mellitus with diabetic chronic kidney disease; N18.9 Chronic kidney disease, unspecified; E78.5 Hyperlipidemia, unspecified; I25.10 Atherosclerotic heart disease of native coronary artery without angina pectoris; I25.2 Old myocardial infarction; Z79.899 Other long term (current) drug therapy; Z79.84 Long term (current) use of oral hypoglycemic drugs; Z79.82 Long term (current) use of aspirin; Z86.73 Personal history of transient ischemic attack (TIA), and cerebral infarction without residual deficits